=== PATIENT | female | born 1985 | race African-American/Black ===

== ENCOUNTER 2022-12-20 23:44 | Emergency (ER) | payer MEDICAID ==
[~2022-12-20] VITALS: Ht 175.3 cm; Wt 150.0 kg
[~2022-12-20 23:44] MED LIST: FLONAS
[2022-12-20 23:51] VITALS: BP 180/80
[2022-12-21] MEDS ORDERED: SUMATRIPTAN SUCCINATE 6MG/0.5ML VIAL SUBCUT ONE (00:30)
[2022-12-21] MEDS ORDERED: ONDANSETRON 4MG ODT PO ONE (00:30)
[2022-12-21] MEDS ORDERED: ACETAMINOPHEN 325MG TABLET PO ONE (00:30)
[2022-12-21 01:00] LABS: HCG SCREEN NEGATIVE
[2022-12-21] MEDS ORDERED: IMIT25 MT (03:25)
[2022-12-21] MEDS ORDERED: LORA10TA64 MT (03:25)
[2022-12-21] MEDS ORDERED: ONDA4TAB50 MT (03:25)
[2022-12-21] MEDS ORDERED: ACET-2708 MT (03:25)
[2022-12-21 04:37] LABS: CLARITY URINE CLEAR (CLEAR); COLOR URINE YELLOW (YELLOW); KETONES URINE NEGATIVE (NEGATIVE); LEUKOCYTE ESTERASE URINE NEGATIVE (NEGATIVE); NITRITE URINE NEGATIVE (NEGATIVE); OCCULT BLOOD URINE NEGATIVE (NEGATIVE); PH URINE 5.5 (4.5-8.0); PROTEIN URINE NEGATIVE (NEGATIVE); SPECIFIC GRAVITY URINE 1.013 (1.005-1.030); UROBILINOGEN URINE 0.2 E.U./dL (0.2-1.0)
== END 2022-12-21 04:11 | disposition home or self-care (01) ==
LOC: ER 23:44
DX: R51.9 Headache, unspecified (principal); M54.2 Cervicalgia; M54.9 Dorsalgia, unspecified
CPT/HCPCS: 81003; 81025; 84703; 93005; 96372; 99284; J3030; Q0162; Z7610